=== PATIENT | female | born 1970 | race Two or more races ===

== ENCOUNTER 2018-05-21 07:58 | Inpatient (IN) | payer OTHER ==
[2018-05-13 12:05] VITALS: BMI 32.4
--- NOTE | 2018-05-21 08:02 | HP ---
Satellite [facility] - Chief Complaint Chief Complaint: right knee pain - Past Medical History Allergies/Adverse Reactions: Allergies Allergy/AdvReac Type Severity Reaction Status Date / Time No Known Drug Allergies Allergy Verified 04/29/18 13:45 ...LMP: 04/29/18 - Current Medications Current Medications: Home Medications Medication Instructions Recorded Omeprazole 20 mg PO HS 04/29/18 Oxycodone HCl/Acetaminophen 1 tab PO TID PRN 04/29/18 [Percocet 5-325 mg Tablet] [facility] Physical Exam - Physical Examination General Appearance: Well Nourished, Well Developed, Alert & Oriented x3 ENT: Clear Lung: Normal air movement Heart: Regular rate & rhythm Extremities: Other (right knee- + swelling, + ttp, decr rom, nvi xrays show grade 4 tricompartmental djd) Neurological: Intact, Alert, Oriented [facility] Impression/Plan - Impression/Plan Impression: right knee djd Operative Procedure: right cindy tkr Date to be Performed: 05/21/18
[2018-05-21] MEDS ORDERED: TRANEXAMIC ACID 1000 MG/10 ML VIAL IVPUSH ONE (08:10)
[2018-05-21] MEDS ORDERED: CEFAZOLIN 2 GM in DEXTROSE 5%-WATER - 50 ML IVPB ONE (08:10)
[2018-05-21] MEDS: GABAPENTIN 300 MG CAPSULE (FP) PO ONE ×2 (08:20→13:38)
[2018-05-21] MEDS: oxyCODONE HCL 10 MG SUSTAINED ACTING TABLET PO ONE ×2 (08:20→13:38)
[2018-05-21] MEDS: CELECOXIB 200 MG CAPSULE PO ONE ×2 (08:20→13:38)
[2018-05-21] MEDS ORDERED: BUPIVACAINE LIPOSOME/PF (EXPAREL) 266 MG/20 ML VIAL ONE (09:13)
[2018-05-21] MEDS ORDERED: MIDAZOLAM HCL 2 MG/2 ML SINGLE DOSE VIAL ONE (09:13)
[2018-05-21] MEDS ORDERED: SODIUM CHLORIDE 0.9% P/F 10 ML VIAL IJ ONE (09:13)
[2018-05-21] MEDS ORDERED: PROPOFOL 20 ML ONE ×4 (09:52→10:37)
[2018-05-21] MEDS ORDERED: TRANEXAMIC ACID 1000 MG/10 ML VIAL ONE ×2 (10:12→11:19)
[2018-05-21] MEDS ORDERED: ceFAZolin SODIUM 1 GM VIAL ONE (10:12)
[2018-05-21] MEDS ORDERED: VANCOMYCIN 1,000 MG VIAL (RESTRICTED TO ID ONLY) IVPB ONE (11:16)
[2018-05-21] MEDS ORDERED: ONDANSETRON 4 MG/2 ML VIAL IVPUSH PRN (11:43)
[2018-05-21] MEDS ORDERED: MAG HYDROX/AL HYDROX/SIMETH 30 ML UNIT-DOSE CUP PO PRN (11:43)
[2018-05-21] MEDS ORDERED: MAGNESIUM HYDROX 2400MG/30ML ORAL SUSPENSION 30 ML CUP PO PRN (11:43)
[2018-05-21] MEDS ORDERED: LACTATED RINGERS SOLUTION 1,000 ML IV SCH (11:45)
--- NOTE | 2018-05-21 11:45 | OP ---
Operative Note - Note: Operative Date: 05/21/18 (yo) Pre-Operative Diagnosis: right knee djd Operation: right cindy tkr Post-Operative Diagnosis: Same as Pre-op Surgeon: Calvin Peter Outboard Motorboat Operator: Vasquez Wiley Anesthesiologist/INTERNAL SECURITY MANAGER: Yoan Ceballos Anesthesia: Spinal, Local Specimens Removed: bone fragments Estimated Blood Loss (mls): 200 Operative Report Dictated: Yes
[2018-05-21] MEDS: ACETAMINOPHEN 1000 MG/100 ML VIAL (NON FORMULARY) IVPB ONE ×2 (12:00→13:38)
[2018-05-21] MEDS: TRANEXAMIC ACID 1000 MG/10 ML VIAL IVPB ONE ×2 (12:55→13:39)
[2018-05-21] MEDS: oxyCODONE HCL 5 MG TABLET PO PRN ×3 (13:11→14:45)
--- NOTE | 2018-05-21 15:37 | SPEC ---
DATE OF OPERATION: 05/21/2018 PREOPERATIVE DIAGNOSIS: Degenerative joint disease, right knee. POSTOPERATIVE DIAGNOSIS: Degenerative joint disease, right knee. PROCEDURE: Right total knee replacement with robotic-assisted navigation (MAKOplasty). SURGICAL ATTENDING: Calvin Peter MD WILDLIFE MANAGEMENT PROFESSOR: YASSINE Che ANESTHESIA: Regional and spinal. CLOSURE: A Press-Fit Triathlon knee system with a 4 femur, 4 tibia, 9 polyethylene, a 32 patella; No. 1 Vicryl, fascia; 0 and 2-0 for subcutaneous; and 3-0 Monocryl subcuticular with skin glue for skin; 4-0 undyed Vicryl for pin sites. ESTIMATED BLOOD LOSS: 200 mL. COMPLICATIONS: None. CONDITION: To recovery room in stable condition. DESCRIPTION OF OPERATIVE PROCEDURE: Patient was taken to the operating room on May 21, 2018. Regional and spinal anesthesia was administered by the anesthesiologist. IV Kefzol was administered prophylactically prior to the case as well as TXA. The right lower extremity was prepped and draped in the usual sterile fashion. The midline 10- to 12-cm longitudinal incision was made. Hemostasis was achieved with Bovie cautery. Sharp dissection was carried down to the extensor mechanism which was perform the procedure. Medial parapatellar arthrotomy was then performed, leaving a cuff of tissue for later closure. The patella was inverted and the knee was flexed up. The fat pad was excised. Subperiosteal dissection was done on the anteromedial proximal tibia until the knee was able to be brought forward. This was facilitated by taking the ACL, PCL and medial and lateral menisci. Checkpoints were placed in both the femur and in the tibia. Two parallel threaded pins were drilled superior to the knee joint through the already made incision from anterior to posterior just going through the anterior cortex but just engaging but not going through the posterior cortex. Two threaded pins were drilled through 2 small stab incisions in parallel fashion 1 handbreadth below the tibial tubercle through the anterior cortex of the tibia and engaging but not going through the posterior cortex. Both sets of pins were attached to navigation arrays for the VANESSA system. The knee was then registered with the navigation system with center of rotation of the hip, medial and lateral malleoli and multiple sites both on the tibia and on the femur. Confirmation of excellent registration was confirmed by "popping the bubbles." At this time, the knee was thoroughly inspected to remove all osteophytes around the knee. The knee was then tensioned in varus/valgus at both full extension and at 90 degrees of flexion to ascertain our gaps. The virtual position of the components was optimized to ensure equal gaps throughout the range of motion. Once this was performed, the robot was brought into the field, was registered. The bone was cut as per the specifications on both the tibia and on the femur. The box cuts were then made as well. Excellent trial stability was obtained on the femur. The tibial baseplate was allowed to "find itself" and then was clipped into place. Confirmation of excellent external rotation of that component was confirmed by the navigation device as well.The patella was calibered for thickness and cut at the appropriate level. The appropriate lollipop was used to drill 3 holes in the patella and a trial asymmetric patellar button was applied. The knee was taken through a range of motion and found to have excellent stability from full extension to full flexion with excellent tracking of the patella. The trial components were then removed. The lug holes were drilled in the femur. The cementless keel was punched in the tibia. The real Press-Fit components were malleted into place, first with the tibia and then with the femur, and then the patella was crimped into place as well. The real polyethylene liner was then clipped into place. Range of motion, stability and tracking were as described earlier. The knee was thoroughly irrigated with copious amounts of irrigation. Vancomycin powder was placed inside the joint. The medial parapatellar arthrotomy was then closed using No. 1 Vicryl interrupted suture. Post closure of the arthrotomy, the knee was taken through a range of motion and found to have no undue tension on the repair. The subcutaneous was then pulse antibiotic irrigated, closed with 0 and 2-0 Vicryl and 3-0 Monocryl subcuticular with skin glue for the skin. Prior to closure, the checkpoints were removed as were the threaded pins. The tibial pin sites were closed with 4-0 undyed Vicryl. A sterile pressure Aquacel dressing was applied. No tourniquet was used during the case. The total blood loss was approximately 100 mL. No complication. Patient was transferred to recovery in stable condition. Joseph [id number]
[2018-05-21] MEDS ORDERED: oxyCODONE HCL 5 MG TABLET PO ONE (15:45)
--- NOTE | 2018-05-21 15:48 | PN ---
Progress Note (short form) - Note Progress Note: Anesthesia pain management Pat C/O pain. Seen and examined. Agitated, stating the block not working and the po meds not working and requesting iv analgetic. Pat denies taking percocet at home, took only Ibuprophen at home. pat is AAOX3. Adding 5 mg oxycodon po. Gabapentin and around the clock tylenol. Benadryl for agitation. Will follow up. Pat satisfied with the current treatment plan. Will follow up.
[2018-05-21] MEDS: CEFAZOLIN 2 GM/D5W 2 GM/50 ML ML IVPB SCH (17:26)
[2018-05-21] MEDS: ACETAMINOPHEN 325 MG TABLET (FP) PO SCH (17:26)
[2018-05-21] MEDS: HYDROmorphone HCL CARPU-JECT 2 MG/1 ML DISP.SYRIN IVPUSH PRN ×2 (18:10→22:10)
[2018-05-21] MEDS: oxyCODONE HCL 10 MG SUSTAINED ACTING TABLET PO SCH (21:29)
[2018-05-21] MEDS: SENNOSIDES/DOCUSATE COMBO (SENNA PLUS) TABLET (UD) PO SCH (21:30)
[2018-05-21] MEDS: GABAPENTIN 300 MG CAPSULE (FP) PO SCH (21:30)
[2018-05-22] MEDS: ACETAMINOPHEN 325 MG TABLET (FP) PO SCH ×4 (00:26→18:13)
[2018-05-22] MEDS: CEFAZOLIN 2 GM/D5W 2 GM/50 ML ML IVPB SCH (02:53)
[2018-05-22] MEDS: oxyCODONE HCL 5 MG TABLET PO PRN ×7 (02:53→18:12)
[2018-05-22] MEDS: ASPIRIN 325 MG TABLET PO SCH (08:00)
[2018-05-22 08:15] LABS: HEMATOCRIT 33.1 % (32.4-45.2); HEMOGLOBIN 10.8 GM/dl (10.7-15.3); MCH 30.4 pg (25.7-33.7); MCHC 32.5 g/dl (32.0-36.0); MEAN CELL VOLUME 93.4 fl (80-96); PLATELET COUNT 224 K/MM3 (134-434); RBC 3.55 M/mm3 (3.60-5.2); RDW 12.3 % (11.6-15.6); WHITE BLOOD COUNT 8.5 K/mm3 (4.0-10.8)
[2018-05-22] MEDS: KETOROLAC TROMETHAMINE 30 MG/1 ML VIAL IVPUSH SCH ×3 (09:09→20:38)
[2018-05-22] MEDS: GABAPENTIN 300 MG CAPSULE (FP) PO SCH ×2 (09:10→21:01)
[2018-05-22] MEDS: oxyCODONE HCL 10 MG SUSTAINED ACTING TABLET PO SCH ×2 (09:11→21:01)
[2018-05-22] MEDS: SENNOSIDES/DOCUSATE COMBO (SENNA PLUS) TABLET (UD) PO SCH ×2 (09:11→21:03)
[2018-05-22] MEDS: MULTIVITAMINS (DAILY MVI) TABLET (FP) PO SCH (09:12)
[2018-05-22] MEDS: PANTOPRAZOLE 40 MG TABLET (FP) PO SCH (09:12)
--- NOTE | 2018-05-22 10:14 | PN ---
Progress Note (short form) - Note Progress Note: Ortho Pt seen and examined s/p right cindy tkr pod #1 Selected Entries 05/22/18 05/22/18 06:00 09:18 Temperature 98.5 F Pulse Rate 90 Respiratory 18 Rate Blood Pressure 134/78 Laboratory Tests 05/22/18 08:00 WBC 8.5 Hgb 10.8 Hct 33.1 Plt Count 224 distal aquacel saturated, + swelling, rom 0-30 calf soft, nt, nvi a/p distal aquacel changed PT dvt ppx pain control- toradol added d/c planning
--- NOTE | 2018-05-22 12:20 | PN ---
Progress Note (short form) - Note Progress Note: ANESTHESIA POSTOP 47 yo female POD 1 s/p TKA Patient complains of pain, mostly in thigh not knee. No weakness. Able to ambulate and participate in PT. Tolerating PO. Requesting more hydromorphone. VSS, afebrile A/P: Patient doing well s/p TKA. Pain control will continue with PRN hydromorphone. Encouraged active participation in PT.
[2018-05-22] MEDS: HYDROmorphone HCL CARPU-JECT 2 MG/1 ML DISP.SYRIN IVPUSH PRN (21:39)
[2018-05-23] MEDS: ACETAMINOPHEN 325 MG TABLET (FP) PO SCH ×3 (00:15→13:00)
[2018-05-23] MEDS: oxyCODONE HCL 5 MG TABLET PO PRN ×4 (01:33→13:20)
[2018-05-23] MEDS: KETOROLAC TROMETHAMINE 30 MG/1 ML VIAL IVPUSH SCH (01:34)
[2018-05-23] MEDS: HYDROmorphone HCL CARPU-JECT 2 MG/1 ML DISP.SYRIN IVPUSH PRN (02:42)
[2018-05-23 06:48] VITALS: BP 130/63; PULSE 83; TEMP 97.9
[2018-05-23 08:15] LABS: HEMATOCRIT 30.5 % (32.4-45.2); MCH 30.9 pg (25.7-33.7); MCHC 32.9 g/dl (32.0-36.0); MEAN CELL VOLUME 93.8 fl (80-96); MEAN PLT VOLUME 8.7 fl (7.5-11.1); PLATELET COUNT 217 K/MM3 (134-434); RBC 3.25 M/mm3 (3.60-5.2); RDW 12.6 % (11.6-15.6); WHITE BLOOD COUNT 10.1 K/mm3 (4.0-10.8)
[2018-05-23] MEDS: GABAPENTIN 300 MG CAPSULE (FP) PO SCH (09:33)
[2018-05-23] MEDS: oxyCODONE HCL 10 MG SUSTAINED ACTING TABLET PO SCH (09:33)
[2018-05-23] MEDS: SENNOSIDES/DOCUSATE COMBO (SENNA PLUS) TABLET (UD) PO SCH (09:34)
[2018-05-23] MEDS: MULTIVITAMINS (DAILY MVI) TABLET (FP) PO SCH (09:34)
[2018-05-23] MEDS: PANTOPRAZOLE 40 MG TABLET (FP) PO SCH (09:34)
[2018-05-23] MEDS: ASPIRIN 325 MG TABLET PO SCH (09:34)
--- NOTE | 2018-05-23 09:55 | PN ---
Progress Note (short form) - Note Progress Note: Ortho Pt seen and examined s/p right cindy tkr pod #2- c/o swelling and tightness in right LE Selected Entries 05/23/18 06:00 Temperature 97.9 F Pulse Rate 83 Respiratory 19 Rate Blood Pressure 130/63 Laboratory Tests 05/23/18 07:35 WBC 10.1 Hgb 10.0 L Hct 30.5 L Plt Count 217 dressing with slight drainage, + swelling, rom 0-50 calf soft, nt, nvi a/p US to r/o dvt- PT dvt ppx pain control if neg ok to d/c home today
--- NOTE | 2018-05-23 12:05 | DS ---
Physical Examination Vital Signs: Vital Signs Temperature 97.9 F 05/23/18 06:00 Pulse Rate 83 05/23/18 06:00 Respiratory Rate 19 05/23/18 06:00 Blood Pressure 130/63 05/23/18 06:00 O2 Sat by Pulse Oximetry (%) 95 05/23/18 06:47 Labs: CBC, BMP 05/23/18 07:35 Discharge Summary Reason For Visit: OSTEOARTHRITIS Procedures: Principal: right tkr Hospital Course: admitted for elective right cindy tkr, had increased swelling in Right LE- US was neg for dvt, otherwise uneventful post-op, pt is stable and ok to d/c home Condition: Good - Instructions Diet, Activity, Other Instructions: Post-op Instructions-Total Knee Replacement Call the office for a follow-up appointment in 1 week - [phone] Aspirin 325mg daily for 6 weeks. Pain medication was sent into your pharmacy. Apply Graduated Compression Stockings (TEDs) to both lower extremities- remove daily for hygiene ONLY Apply Sequential Compression Device (SCDs) to both Lower extremities remove for PT and hygiene ONLY Apply cold packs to affected area for 15 minutes every 2 hours. Physical Therapist will come to your home for the first 5 days. You will be set up with outpatient PT at your first post-operative visit. Patient may ambulate as tolerated-encourage self care (at least every 2-3 hours while awake) with walker or cane Maintain Aquacel (waterproof) dressing to operative wound (will be removed by surgeon at first office visit) Shower with Aquacel dressing in place-if Aquacel integrity compromised, remove and apply dry sterile dressing and notify Orthopedist. DO NOT SHOWER unless Orthopedists approves without Aquacel dressing CONTACT THE OFFICE FOR ANY CHANGE IN YOUR CONDITION (for example-fever greater than 102 degrees, excessive bleeding from operative site, purulent drainage, severe swelling or pain) GO TO THE EMERGENCY ROOM IF THERE IS A MEDICAL EMERGENCY Knee Precautions: * Keep a rolled towel under affected heel while in bed or chair (to keep knee in extension) * Keep affected leg elevated except during mealtimes * DO NOT PLACE PILLOW UNDER AFFECTED KNEE * If you have any questions, please do not hesitate to call the office - . Referrals: Calvin Peter MD [Staff Physician] - - Home Medications Comprehensive Discharge Medication List: Ambulatory Orders Omeprazole 20 mg PO HS 04/29/18 Aspirin [ASA -] 325 mg PO DAILY@0800 tablet 05/21/18 Oxycodone HCl/Acetaminophen [Oxycodone-Acetaminophen 10-325] 1 each PO QID #40 tablet MDD 4 05/21/18
--- NOTE | 2018-05-27 13:06 | PATH ---
Surgical Pathology Report Patient Name: TOO FLORES Med. Rec. #: [id number] /Age/Gender: 1970 (Age: 47) / F Account: [id number] Location: [facility] MED-SURG Taken: 05/21/2018 Received: 05/21/2018 Reported: 05/27/2018 Physicians: Calvin Peter M.D. Specimen(s) Received RIGHT KNEE BONE Clinical History Osteoarthritis of right knee Final Diagnosis BONE, RIGHT KNEE, TOTAL KNEE REPLACEMENT: DEGENERATIVE JOINT DISEASE. Electronically Signed Bettie Andujar M.D. Gross Description Received in formalin labeled "right knee bone," is a 10.0 x 9.4 x 1.8 cm aggregate of multiple portions of bone and soft tissue, consistent with knee bones. No areas of eburnation are identified. The articular surfaces are conrad-yellow and diffusely granular. The underlying trabecular bone is yellow and hard. Expeller Operator sections are submitted in one cassette, following decalcification. /05/23/2018 [facility]05/23/2018
== END 2018-05-23 13:21 | disposition home health service (06) | DRG 302 ==
LOC: FM/S 07:58
PROVIDERS: ADMIT Orthopaedic Surgery; ATTEND Orthopaedic Surgery
PROC: 8E0Y0CZ Robotic Assisted Procedure of Lower Extremity, Open Approach (ICD-10-PCS; 2018-05-21)
PROC: 0SRC0JA Replacement of Right Knee Joint with Synthetic Substitute, Uncemented, Open Approach (ICD-10-PCS; principal; 2018-05-21 09:30)
DX: M17.11 Unilateral primary osteoarthritis, right knee (principal)
CPT/HCPCS: 36415; 73560-TC-RT-FY; 84703; 85027; 88304-TC; 88311-TC; 93971-TC; 94760; 97116-GP; 97162-GP; J0131

== ENCOUNTER 2019-03-18 16:09 | Day surgery (SDC) | payer OTHER ==
[2019-03-10 12:07] VITALS: BMI 31.7
--- NOTE | 2019-03-18 08:10 | HP ---
Satellite [facility] - Chief Complaint Chief Complaint: left knee pain - Past Medical History Allergies/Adverse Reactions: Allergies Allergy/AdvReac Type Severity Reaction Status Date / Time No Known Drug Allergies Allergy Verified 03/10/19 11:59 ...LMP: 04/29/18 ...LMP Comment: OCTOBER 2018 - Current Medications Current Medications: Home Medications Medication Instructions Recorded Omeprazole 20 mg PO AM 04/29/18 [facility] Physical Exam - Physical Examination General Appearance: Well Nourished, Well Developed, Alert & Oriented x3 ENT: Clear Lung: Normal air movement Heart: Regular rate & rhythm Extremities: Other (left knee- + swelling, + ttp medially, decr rom, nvi, xrays show grade 4 medial djd) Neurological: Intact, Alert, Oriented [facility] Impression/Plan - Impression/Plan Impression: left knee medial djd Operative Procedure: left medial cindy ukr Date to be Performed: 03/18/19
[2019-03-18] MEDS: CELECOXIB 200 MG CAPSULE PO ONE ×2 (08:45→09:30)
--- NOTE | 2019-03-18 14:07 | OP ---
Operative Note - Note: Operative Date: 03/18/19 (yo) Pre-Operative Diagnosis: left knee medial djd Operation: left medial cindy ukr Post-Operative Diagnosis: Same as Pre-op Surgeon: Calvin Peter Thermal Cutting Machine Operator: Vasquez Wiley Anesthesiologist/CARBON DIOXIDE OPERATOR: Ana Luisa James Anesthesia: Spinal, Local Specimens Removed: bone fragments Estimated Blood Loss (mls): 100
[~2019-03-18 16:09] MED LIST: ACETAMINOPHEN 325 MG TABLET (FP) ONE; BUPIVACAINE HCL/PF 0.5% (5 MG/ML) 30 ML VIAL IJ ONE; BUPIVICAINE 0.25%/MORPH PF/KETOROLAC - 51ML DISP.SYRINGE IA ONE; CEFAZOLIN 2 GM in DEXTROSE 5%-WATER - 50 ML IVPB ONE; DEXAMETHASONE SOD PHOSPHATE 4 MG/1 ML VIAL ONE; DEXAMETHASONE SOD PHOSPHATE/PF 10 MG/ML SDV ONE; DOCUSATE SODIUM 100 MG CAPSULE (FP) PO PRN; GELATIN, ABSORBABLE 12-7MM EACH SPONGE TP ONE; LACTATED RINGERS SOLUTION 1,000 ML IV SCH; MAG HYDROX/AL HYDROX/SIMETH 30 ML UNIT-DOSE CUP PO PRN; MIDAZOLAM HCL 2 MG/2 ML SINGLE DOSE VIAL ONE; ONDANSETRON 4 MG/2 ML VIAL IVPUSH PRN; SODIUM CHLORIDE 0.9% P/F 10 ML VIAL IJ ONE; THROMBIN (BOVINE) 5,000 UNIT VIAL TP ONE; THROMBIN (RECOMBINANT) 5,000 UNIT VIAL TP ONE; TRANEXAMIC ACID 1000 MG/10 ML VIAL IVPUSH ONE; TRANEXAMIC ACID 1000 MG/10 ML VIAL ONE; ceFAZolin SODIUM 1 GM VIAL ONE; oxyCODONE HCL 5 MG TABLET PO PRN
--- NOTE | 2019-03-18 16:18 | PN ---
Progress Note, Physician Chief Complaint: AWAKE ALERT S/P LEFT KNEE VANESSA DENIES FEVER CHILLS OR CHEST PAIN/SOB - Current Medication List Current Medications: Active Medications Acetaminophen (Tylenol -) 650 mg PO Q6H [facility] Stop: 03/21/19 15:59 Al Hydroxide/Mg Hydroxide (Mylanta Oral Suspension -) 30 ml PO Q4H PRN PRN Reason: DYSPEPSIA Aspirin (Asa -) 325 mg PO DAILY@0800 [facility] Fentanyl (Sublimaze Injection -) 50 mcg IVPUSH [id number] PRN PRN Reason: PAIN-PACU ORDER X 4 DOSES ONLY Gabapentin (Neurontin -) 200 mg PO BID [facility] Cefazolin Sodium/Dextrose (Ancef 2 Gm Premixed Ivpb -) 2 gm in 50 mls @ 100 mls /hr IVPB Q8H [facility] Stop: 03/19/19 05:29 Lactated Ringer's (Lactated Ringers Solution) 1,000 mls @ 125 mls/hr IV ASDIR [facility] Stop: 03/19/19 06:00 Multivitamins/Minerals/Vitamin C (Tab-A-Vit -) 1 tab PO DAILY [facility] Ondansetron HCl (Zofran Injection) 4 mg IVPUSH Q6H PRN PRN Reason: NAUSEA Oxycodone HCl (Roxicodone -) 5 mg PO Q3H PRN PRN Reason: PAIN LEVEL 1-5 Oxycodone HCl (Roxicodone -) 10 mg PO Q3H PRN PRN Reason: PAIN LEVEL 6-10 Oxycodone HCl (Oxycontin -) 10 mg PO BID [facility] Stop: 03/21/19 14:40 Pantoprazole Sodium (Protonix -) 20 mg PO AM [facility] Senna/Docusate Sodium (Pericolace -) 2 tablet PO BID [facility] - Objective Vital Signs: Vital Signs Temperature 98.2 F 03/18/19 15:56 Pulse Rate 68 03/18/19 15:56 Respiratory Rate 16 03/18/19 15:56 Blood Pressure 141/77 03/18/19 15:56 O2 Sat by Pulse Oximetry (%) 97 03/18/19 15:56 Constitutional: Yes: Mild Distress Cardiovascular: Yes: Regular Rate and Rhythm Respiratory: Yes: WNL Gastrointestinal: Yes: WNL Genitourinary: Yes: WNL Musculoskeletal: Yes: WNL Edema: No Wound/Incision: Yes: Other (LEFT KNEE DRESSING INTACT) ...Motor Strength: LLE Psychiatric: Yes: WNL Problem List - Problems (1) Status post left knee replacement Code(s): Z96.652 - PRESENCE OF LEFT ARTIFICIAL KNEE JOINT Assessment/Plan S/P LEFT KNEE VANESSA PAIN CONTROL DVT PROPHYLAXIS PT EVAL HOME FOR DISCHARGE
[2019-03-18] MEDS: ACETAMINOPHEN 325 MG TABLET (FP) PO SCH ×2 (17:08→21:08)
[2019-03-18] MEDS: oxyCODONE HCL 5 MG TABLET PO PRN (18:45)
[2019-03-18] MEDS: CEFAZOLIN 2 GM/D5W 2 GM/50 ML ML IVPB SCH (20:48)
[2019-03-18] MEDS: GABAPENTIN 100 MG CAPSULE (FP) PO SCH (21:09)
[2019-03-18] MEDS: oxyCODONE HCL 10 MG SUSTAINED ACTING TABLET PO SCH (21:09)
[2019-03-18] MEDS: SENNOSIDES/DOCUSATE COMBO (SENNA PLUS) TABLET (UD) PO SCH (21:09)
[2019-03-18] MEDS ORDERED: HYDROmorphone HCl 2 MG/ML VIAL IVPB PRN (21:16)
[2019-03-19] MEDS: ACETAMINOPHEN 325 MG TABLET (FP) PO SCH ×2 (05:07→10:21)
[2019-03-19] MEDS: oxyCODONE HCL 5 MG TABLET PO PRN ×3 (05:07→08:25)
[2019-03-19] MEDS: CEFAZOLIN 2 GM/D5W 2 GM/50 ML ML IVPB SCH (05:09)
[2019-03-19] MEDS ORDERED: PATIENT'S OWN MEDICATION (NON-FORMULARY) (Omeprazole [Omeprazole] 20 MG) PO SCH (07:00)
[2019-03-19] MEDS ORDERED: PANTOPRAZOLE 20 MG TABLET (FP) PO SCH (07:00)
[2019-03-19 07:37] LABS: HEMATOCRIT 32.6 % (32.4-45.2); HEMOGLOBIN 11.2 GM/dl (10.7-15.3); MCHC 34.4 g/dl (32.0-36.0); MEAN CELL VOLUME 87.4 fl (80-96); MEAN PLT VOLUME 9.4 fl (7.5-11.1); PLATELET COUNT 242 K/MM3 (134-434); RBC 3.73 M/mm3 (3.60-5.2); RDW 14.3 % (11.6-15.6); WHITE BLOOD COUNT 12.8 K/mm3 (4.0-10.8)
[2019-03-19 07:52] LABS: CALCIUM 8.6 mg/dl (8.5-10); CREATININE 0.7 mg/dl (0.55-1.3); POTASSIUM 3.8 mmol/L (3.5-5.1)
[2019-03-19] MEDS ORDERED: ASPIRIN 325 MG TABLET PO SCH (08:00)
--- NOTE | 2019-03-19 08:07 | PN ---
Progress Note (short form) - Note Progress Note: Ortho Pt seen and examined s/p left medial cindy tkr pod #1 Selected Entries 03/19/19 04:00 Temperature 98.5 F Pulse Rate 65 Respiratory 19 Rate Blood Pressure 151/81 Laboratory Tests 03/19/19 07:10 WBC 12.8 H Hgb 11.2 Hct 32.6 Plt Count 242 dressing c/d/i, calf soft, nt rom 0-40, nvi a/p PT dvt ppx pain control d/c home today f/u in 1 week
--- NOTE | 2019-03-19 08:08 | DS ---
Physical Examination Vital Signs: Vital Signs Temperature 98.5 F 03/19/19 04:00 Pulse Rate 65 03/19/19 04:00 Respiratory Rate 19 03/19/19 04:00 Blood Pressure 151/81 03/19/19 04:00 O2 Sat by Pulse Oximetry (%) 96 03/19/19 06:33 Labs: CBC, BMP 03/19/19 07:10 03/19/19 07:10 Discharge Summary Problems reviewed: Yes Reason For Visit: OSTEOARTHRITIS Current Active Problems Status post left knee replacement (Acute) Procedures: Principal: left medial cindy ukr Hospital Course: admitted for elective left medial cindy ukr, post-op as per protocol, stable for d/c Condition: Good - Instructions Diet, Activity, Other Instructions: Post-op Instructions-Partial Knee Replacement Call the office for a follow-up appointment in 1 week - [phone] Aspirin 325mg daily for 6 weeks. Pain medication was sent into your pharmacy. Apply Graduated Compression Stockings (TEDs) to both lower extremities- remove daily for hygiene ONLY Apply Sequential Compression Device (SCDs) to both Lower extremities remove for PT and hygiene ONLY Apply cold packs to affected area for 15 minutes every 2 hours. Physical Therapist will come to your home for the first 5 days. You will be set up with outpatient PT at your first post-operative visit. Patient may ambulate as tolerated-encourage self care (at least every 2-3 hours while awake) with walker or cane Maintain Aquacel (waterproof) dressing to operative wound (will be removed by surgeon at first office visit) Shower with Aquacel dressing in place-if Aquacel integrity compromised, remove and apply dry sterile dressing and notify Orthopedist. DO NOT SHOWER unless Orthopedists approves without Aquacel dressing CONTACT THE OFFICE FOR ANY CHANGE IN YOUR CONDITION (for example-fever greater than 102 degrees, excessive bleeding from operative site, purulent drainage, severe swelling or pain) GO TO THE EMERGENCY ROOM IF THERE IS A MEDICAL EMERGENCY Knee Precautions: * Keep a rolled towel under affected heel while in bed or chair (to keep knee in extension) * Keep affected leg elevated except during mealtimes * DO NOT PLACE PILLOW UNDER AFFECTED KNEE * If you have any questions, please do not hesitate to call the office - [phone]. Referrals: Calvin Peter MD [Staff Physician] - Disposition: VNS/HOME HEALTH CARE - Home Medications Comprehensive Discharge Medication List: Ambulatory Orders Omeprazole 20 mg PO AM 04/29/18 Acetaminophen [Tylenol] 650 mg PO ASDIR PRN 03/18/19 Aspirin [ASA -] 325 mg PO DAILY@0800 tablet 03/18/19 Docusate Sodium [Colace] 100 mg PO ASDIR PRN 03/18/19 Gabapentin 200 mg PO BID 03/18/19 Oxycodone HCl/Acetaminophen [Percocet 5-325 mg Tablet -] 1 - 2 tab PO Q6H #50 tab MDD 8 03/18/19
[2019-03-19 09:04] VITALS: BP 132/78; PULSE 82; TEMP 98.4
[2019-03-19] MEDS ORDERED: MULTIVITAMINS (DAILY MVI) TABLET (FP) PO SCH (10:00)
[2019-03-19] MEDS ORDERED: ACETAMINOPHEN 1000 MG/100 ML VIAL (NON FORMULARY) IVPB ONE (10:02)
[2019-03-19] MEDS: oxyCODONE HCL 10 MG SUSTAINED ACTING TABLET PO SCH (10:20)
[2019-03-19] MEDS: SENNOSIDES/DOCUSATE COMBO (SENNA PLUS) TABLET (UD) PO SCH (10:20)
[2019-03-19] MEDS: GABAPENTIN 100 MG CAPSULE (FP) PO SCH (10:20)
--- NOTE | 2019-03-19 10:23 | PN ---
Progress Note, Physician Chief Complaint: POST OP DAY 2 LEFT PARTIAL VANESSA KNEE NO FEVER OR CHILLS NO CP/SOB - Current Medication List Current Medications: Active Medications Acetaminophen (Tylenol -) 650 mg PO Q6H [facility] Stop: 03/21/19 15:59 Last Admin: 03/19/19 05:07 Dose: 650 mg Al Hydroxide/Mg Hydroxide (Mylanta Oral Suspension -) 30 ml PO Q4H PRN PRN Reason: DYSPEPSIA Aspirin (Asa -) 325 mg PO DAILY@0800 [facility] Last Admin: 03/19/19 08:25 Dose: 325 mg Gabapentin (Neurontin -) 200 mg PO BID [facility] Last Admin: 03/18/19 21:09 Dose: 200 mg Hydromorphone HCl (Dilaudid Vial -) 0.5 mg IVPB Q30M PRN PRN Reason: BREAKTHROUGH PAIN Stop: 03/19/19 21:15 Last Admin: 03/18/19 21:47 Dose: 0.5 mg Multivitamins/Minerals/Vitamin C (Tab-A-Vit -) 1 tab PO DAILY [facility] Ondansetron HCl (Zofran Injection) 4 mg IVPUSH Q6H PRN PRN Reason: NAUSEA Oxycodone HCl (Roxicodone -) 5 mg PO Q3H PRN PRN Reason: PAIN LEVEL 1-5 Oxycodone HCl (Roxicodone -) 10 mg PO Q3H PRN PRN Reason: PAIN LEVEL 6-10 Last Admin: 03/19/19 08:25 Dose: 10 mg Oxycodone HCl (Oxycontin -) 10 mg PO BID [facility] Stop: 03/21/19 14:40 Last Admin: 03/18/19 21:09 Dose: 10 mg Pantoprazole Sodium (Protonix -) 20 mg PO AM [facility] Last Admin: 03/19/19 06:33 Dose: 20 mg Senna/Docusate Sodium (Pericolace -) 2 tablet PO BID [facility] Last Admin: 03/18/19 21:09 Dose: 2 tablet - Objective Vital Signs: Vital Signs Temperature 98.4 F 03/19/19 09:00 Pulse Rate 82 03/19/19 09:00 Respiratory Rate 18 03/19/19 09:00 Blood Pressure 132/78 03/19/19 09:00 O2 Sat by Pulse Oximetry (%) 97 03/19/19 09:00 Constitutional: Yes: Mild Distress Cardiovascular: Yes: Regular Rate and Rhythm Respiratory: Yes: WNL Gastrointestinal: Yes: WNL Genitourinary: Yes: WNL Musculoskeletal: Yes: Other Edema: No Peripheral Pulses WNL: Yes Integumentary: Yes: WNL Wound/Incision: Yes: Dressing Removed Neurological: Yes: Other ...Motor Strength: LLE Psychiatric: Yes: WNL Labs: CBC, BMP 03/19/19 07:10 03/19/19 07:10 Problem List - Problems (1) Status post left knee replacement Code(s): Z96.652 - PRESENCE OF LEFT ARTIFICIAL KNEE JOINT Assessment/Plan S/P LEFT KNEE VANESSA PAIN CONTROL DVT PROPHYLAXIS PT EVAL HOME FOR DISCHARGE
--- NOTE | 2019-03-19 13:24 | PN ---
Progress Note (short form) - Note Progress Note: Post op day31.S/P left knee medial VANESSA plasty under spinal anesthesia with L adductor canal and selective tibialN block uneventful.Patient stable and c/o pain score of 8-10/10 just after phsiotherapy.Patient is on medication for pain.No any anesthesia related problem.Patient Dc from the anesthesia care.
--- NOTE | 2019-03-19 17:44 | SPEC ---
DATE OF OPERATION: 03/18/2019 PREOPERATIVE DIAGNOSIS: Degenerative joint disease, left knee. POSTOPERATIVE DIAGNOSIS: Degenerative joint disease, left knee. PROCEDURE: Left medial unicompartmental knee replacement with robotic-assisted navigation (MAKOplasty) and patelloplasty. SURGICAL ATTENDING: Calvin Peter MD SELF PROPELLED DREDGE OPERATOR: YASSINE Che ANESTHESIA: Regional and spinal. CLOSURE: Left medial unicompartmental VANESSA components with a 4 femur, 4 tibia, and an 8 polyethylene; No. 1 Vicryl fascia; 0 and 2-0 subcutaneous; 3-0 Monocryl subcuticular with skin glue; 4-0 undyed Vicryl for pin sites. ESTIMATED BLOOD LOSS: Less than 100 mL. COMPLICATIONS: None. CONDITION: To recovery in stable condition. DESCRIPTION OF OPERATIVE PROCEDURE: Patient was taken to the operating room on March 18, 2019. Spinal and regional anesthesia was administered by the anesthesiologist. IV Kefzol and TXA were administered prophylactically prior to the case. A well-padded pneumatic tourniquet was placed on the left proximal thigh. The left lower extremity was prepped and draped in the usual sterile fashion. A 6- to 8-cm longitudinal incision over the medial side of the patella from mid patella to the tibial tubercle was incised and was deepened using Bovie cautery. An arthrotomy was then made just medial to the patellar tendon and the patella. Subperiosteal dissection was done on the anteromedial proximal tibia all the way back to the MCL. Partial fat pad excision was performed, exposing the medial compartment. Checkpoint was malleable at both the femur and the tibia. Using 2 stab incisions in the femur 1 handbreadth above the patella on the femur and 2 stab incisions 1 handbreadth below the tibial tubercle on the tibia, 2 threaded pins were drilled in parallel fashion from anterior to posterior, going through the proximal cortex and engaging the 2nd but not through the 2nd cortex. To these threaded pins were fastened navigation rays, 1 on the femur and 1 on the tibia. The knee was then registered with the navigation device with the center of the rotation of the hip, medial and lateral malleoli, and multiple points both on the femur and on the tibia. Excellent registration of less than 0.5 mm was obtained on both to ensure adequate registration. The navigation device ensured us to "pop the bubbles" both on the femur and the tibia and that was performed and passed registration. The knee was then thoroughly inspected to remove all osteophytes both on the femur and the tibia. Also, osteophytes on the trochlea and on the surface of the patella were removed as well. The knee was then stressed with valgus stress at 0, 30, 60, 90, and 120 degrees of flexion. This propagated a looseness/tightness graft. The virtual positions of the components were then optimized to ensure an excellent graft. The tracking also was optimized by manipulating the virtual position to ensure that the femoral component articulated with the central portion of the tibial component. The robot was then brought into the field and was registered. The robot was used to bur the bone on both the femur and the tibia as to the specifications of the components. The trial components were then applied on both the femur and the tibia with an appropriate polyethylene insert. The knee was taken through a range of motion and found to have full extension, full flexion, with excellent stability. Stressing the graft revealed an excellent looseness/tightness graft with the trial components in place. The trial components were removed. The knee was thoroughly irrigated with a copious amount of antibiotic irrigation. The real components were then cemented in using modern generation cement techniques with antibiotic cement and pressurization. After the cement was hardened, the knee was thoroughly inspected to remove out all excess cement. The real polyethylene insert was then clipped into place. Range of motion and stability were again assessed to be as they were with the trials. At this time, the pins and the checkpoints were removed. The knee was again thoroughly irrigated. The arthrotomy was closed with No. 1 Vicryl, 0 and 2-0 subcutaneous, and 3-0 Monocryl subcuticular with skin glue for the skin, 4-0 undyed Vicryl for the pin sites. Sterile pressure dressing was placed over the knee. Patient awakened from anesthesia and transferred to recovery in stable condition. No complications. Estimated blood loss negligible. X-rays postoperatively revealed excellent position of the components. Joseph [id number]
== END 2019-03-19 15:15 | disposition home health service (06) ==
LOC: FM/S 16:09 → FASUSAT 16:09
PROVIDERS: ATTEND Orthopaedic Surgery
PROC: 8E0YXBZ Computer Assisted Procedure of Lower Extremity (ICD-10-PCS; 2019-03-18)
PROC: 8E0Y0CZ Robotic Assisted Procedure of Lower Extremity, Open Approach (ICD-10-PCS; 2019-03-18)
PROC: 0SRD0L9 Replacement of Left Knee Joint with Medial Unicondylar Synthetic Substitute, Cemented, Open Approach (ICD-10-PCS; principal; 2019-03-18 12:57)
DX: M17.12 Unilateral primary osteoarthritis, left knee (principal)
CPT/HCPCS: 20985; 27446; C1776; S2900; 36415; 73560-TC-LT-FY; 80048; 84703; 85027; 94760; 97116-GP; 97163-GP; J0131

== ENCOUNTER 2023-01-20 17:54 | Emergency (ER) | payer SELFPAY ==
[2023-01-20 18:30] VITALS: RESP 16
[2023-01-20] MEDS ORDERED: KETOROLAC TROMETHAMINE 30 MG/1 ML VIAL IM ONE (20:05)
[2023-01-20] MEDS ORDERED: morphine CARPU-JECT 2 MG/1 ML DISP.SYRIN IVPUSH ONE (20:07)
[2023-01-20] MEDS ORDERED: SODIUM CHLORIDE 0.9% 500 ML INFUS.BAG IV ONE (20:07)
[2023-01-20 20:44] VITALS: BMI 32.5
[2023-01-20 20:46] LABS: BASO % 0.7 % (0-2.0); EOS % 4.5 % (0-4.5); HEMATOCRIT 41.2 % (32.4-45.2); HEMOGLOBIN 14.3 GM/dL (10.7-15.3); LYMPH % 15.2 % (8-40); MCH 31.1 pg (25.7-33.7); MCHC 34.9 g/dl (32.0-36.0); MEAN CELL VOLUME 89.1 fl (80-96); MEAN PLT VOLUME 8.2 fl (7.5-11.1); MONO % 5.8 % (3.8-10.2); NEUT % 73.8 % (42.8-82.8); PLATELET COUNT 215 10^3/uL (134-434); RBC 4.62 M/mm3 (3.60-5.2); RDW 12.9 % (11.6-15.6); WHITE BLOOD COUNT 7.3 K/mm3 (4.0-10.0)
[2023-01-20 20:56] LABS: POTASSIUM 3.9 mmol/L (3.5-5.1)
[2023-01-20 20:58] LABS: BLOOD UREA NITROGEN 11.9 mg/dL (7-18); CALCIUM 9.5 mg/dL (8.5-10.1)
[2023-01-20 20:59] LABS: ALBUMIN 4.3 g/dl (3.4-5.0)
[2023-01-20 21:01] LABS: CREATININE 0.7 mg/dL (0.55-1.3)
[2023-01-20 21:03] LABS: BILIRUBIN,TOTAL 0.4 mg/dL (0.2-1); TOT PROT 7.6 g/dl (6.4-8.2)
[2023-01-20 21:12] LABS: PH,URINE 5.5 (5.0-8.0); URINE APPEARANCE CLEAR; URINE BILIRUBIN NEGATIVE (NEGATIVE); URINE COLOR YELLOW; URINE GLUCOSE (UA) NEGATIVE (NEGATIVE); URINE KETONE TRACE (NEGATIVE); URINE LEUK ESTERASE NEGATIVE (NEGATIVE); URINE NITRITE NEGATIVE (NEGATIVE); URINE PROTEIN TRACE (NEGATIVE)
[2023-01-21 01:43] VITALS: BP 126/65; PULSE 97; TEMP 98.6
== END 2023-01-21 01:58 | disposition home or self-care (01) ==
LOC: JER 17:54
PROC: 3E033GC Introduction of Other Therapeutic Substance into Peripheral Vein, Percutaneous Approach (ICD-10-PCS; principal; 2023-01-20)
DX: R10.9 Unspecified abdominal pain (principal); M54.9 Dorsalgia, unspecified; K59.00 Constipation, unspecified; R23.2 Flushing
CPT/HCPCS: 36415; 71046-TC-FY; 74177-TC; 80053; 81003; 84703; 85025; 87086; 99285-25; Q9967